=== PATIENT | female | born 1960 | race Caucasian/White ===

== ENCOUNTER 2019-06-06 10:54 | Outpatient (CLI) | payer BC ==
--- NOTE | 2019-06-06 11:55 | CT ---
EXAM: CT Pulmonary Lung Scan, noncontrast PROVIDED CLINICAL HISTORY: Nicotine dependence, chest pain, COPD/emphysema. Tobacco abuse for 45 years. COMPARISON: None FINDINGS: There is a small pleural-based irregular nodular density at the anterior aspect left upper lobe measu ring 4 to 5 mm. This may represent small focal area of scarring. Biapical pleural and parenchymal scarring are present. Calcified granulomata are seen in the right upper and right lower lobes. Linear scarring versus atelectasis is present at each lung base. No noncalcified parenchymal pulmonar y nodule or mass is visualized. No pleural effusion is seen. Calcified right hilar lymph nodes are seen. Lack of intravenous contrast does limit evaluation of the mediastinal and hilar structures, but no definite enlarged lymph nodes are seen. Lack of intravenous contrast limits evaluation of vascular structures. However, the thoracic aorta is normal in caliber with vascular calcifications seen in the thoracic aorta. Postsurgical changes of the stomach and proximal loops of small bowel are noted. Postcholecystectomy changes are noted. There is distention of what appears to be the hepatic flexure with large amount of retained fecal mat erial seen in this region, but this is incompletely imaged or evaluated. The colon in this region measure 6.3 cm. Right kidney appears smaller in size than the left kidney and demonstrates a lobulated appearance. Ri ght kidney is incompletely imaged. Vertebroplasty changes involve a mild burst fracture of the L2 vertebral body. There is a burst fract ure involving the L1 vertebral body with slight retropulsion of the posterior superior endplate. The exact age of this fracture is indeterminate. There is a mild wedge-shaped compression fracture of the T7 vertebral body also of indeterminate age. IMPRESSION: 1. Lung RADS category 2, continue annual screening with low-dose CT scan in 12 months. 2. Distention of the hepatic flexure with large amount of retained fecal material seen in this region . This is incompletely imaged or evaluated. 3. Age-indeterminate compression fracture T7 vertebral body with age-indeterminate burst fracture of the L1 vertebral body.
== END 2019-06-06 10:55 | disposition home or self-care (01) ==
LOC: CT 10:54
PROVIDERS: ATTEND Internal Medicine
DX: F17.210 Nicotine dependence, cigarettes, uncomplicated (principal); K59.00 Constipation, unspecified; K76.89 Other specified diseases of liver
CPT/HCPCS: G0297